=== PATIENT | female | born 1950 | race Caucasian/White ===

== ENCOUNTER 2017-08-25 21:17 | Inpatient (IN) | payer MEDICARE, MEDICAID ==
[~2017-08-25] VITALS: Ht 152.4 cm; Wt 56.7 kg
--- NOTE | 2017-08-25 21:17 | NUR ---
BB RA; RIGHT LOWER LEG S/P GLF PAIN 01/27 NONRADIATING. VSS NAD. WILL CONTINE TO MONITOR FOR ANY CHANGES DURING THE SHIFT. FRIEND AT BEDSIDE
--- NOTE | 2017-08-25 22:30 | NUR ---
MERCHANDISE EXAMINER AT BEDSIDE TO COLLECT BLOOD
--- NOTE | 2017-08-25 22:39 | NUR ---
SNUFF DRIER AT BEDSIDE
[2017-08-25 22:43] LABS: BASOPHILS # (AUTO) 0.1 /CMM (0.0-0.2); BASOPHILS % (AUTO) 1.2 % (0.0-2.0); HEMATOCRIT 40 % (33-45); HEMOGLOBIN 13.8 g/dL (11.5-14.8); LYMPHOCYTES # (AUTO) 2.4 /CMM (0.8-4.8); LYMPHOCYTES % (AUTO) 32.7 % (20.0-44.0); MEAN CORPUSCULAR HGB CONC 35 g/dl (31.0-36.0); MEAN CORPUSCULAR VOLUME 98 fL (82-100); MONOCYTES # (AUTO) 0.6 /CMM (0.1-1.30); MONOCYTES % (AUTO) 7.8 % (2.0-12.0); NEUTROPHILS # (AUTO) 4.2 /CMM (1.8-8.9); NEUTROPHILS % (AUTO) 57.3 % (43.0-81.0); PLATELET COUNT (AUTO) 361 /CMM (150-450); RDW COEFFICIENT OF VARIATION 13.2 (11.5-15.0); RED BLOOD CELL COUNT(AUTO) 4.05 MIL/uL (4.0-5.2); WHITE BLOOD COUNT (AUTO) 7.3 K/uL (4.3-11.0)
--- NOTE | 2017-08-25 22:45 | NUR ---
MINE ENVIRONMENTAL ENGINEER AT BEDSIDE
[2017-08-25 22:56] LABS: INR 0.97 (0.87-1.13)
[2017-08-25 23:01] LABS: ALANINE AMINOTRANSFERASE 35 U/L (12-78); ALBUMIN 3.9 g/dL (3.4-5.0); ALKALINE PHOSPHATASE 89 U/L (46-116); ASPARTATE AMINOTRANSFERASE 22 U/L (15-37); BILIRUBIN,DIRECT 0.1 mg/dL (0.0-0.2); BILIRUBIN,TOTAL 0.3 mg/dL (0.2-1.0); CALCIUM, SERUM 8.9 mg/dL (8.5-10.1); CARBON DIOXIDE 25 mmol/L (21-32); CHLORIDE 97 mmol/L (98-107); CREATININE 0.7 mg/dL (0.6-1.3); GLUCOSE 105 mg/dL (74-106); POTASSIUM 3.9 mmol/L (3.5-5.1); SODIUM SERUM 135 mmol/L (136-145); UREA NITROGEN, BLOOD 7 mg/dL (7-18)
[2017-08-25 23:03] LABS: TROPONIN I < 0.017 ng/mL (0.00-0.056)
--- NOTE | 2017-08-25 23:14 | NUR ---
FOR EMEGERENCY CALL [facility]
[2017-08-26] MEDS ORDERED: ZOLPIDEM TARTRATE 5 MG TABLET PO PRN
[2017-08-26] MEDS ORDERED: HYDROCODONE/APAP 5/325MG 1 EACH TABLET PO PRN
[2017-08-26] MEDS ORDERED: Z GUARD REMEDY 2 OZ OINT TP PRN
[2017-08-26] MEDS ORDERED: MAG HYDROX/AL HYDROX/SIMETH 30 ML UDC PO PRN
[2017-08-26] MEDS ORDERED: MAGNESIUM HYDROXIDE 30 ML UDC PO PRN
[2017-08-26] MEDS ORDERED: ACETAMINOPHEN 325 MG TABLET PO PRN
[2017-08-26] MEDS ORDERED: ONDANSETRON HCL/PF 4 MG/2 ML VIAL IVP PRN
[2017-08-26 00:04] LABS: APPEARANCE,URINE CLEAR (CLEAR); BILIRUBIN,URINE NEGATIVE (NEGATIVE); BLOOD, URINE NEGATIVE Ery/uL (NEGATIVE); COLOR,URINE YELLOW (YELLOW); KETONES,URINE NEGATIVE (NEGATIVE); LEUKOCYTE ESTERASE ,URINE NEGATIVE (NEGATIVE); NITRITE, URINE NEGATIVE (NEGATIVE); PH,URINE 5.5 (5.0-8.0); PROTEIN,URINE NEGATIVE (NEGATIVE); UGLUCOSE NEGATIVE (NEGATIVE); UROBILINOGEN,URINE 0.2 EU/dL (0.2)
--- NOTE | 2017-08-26 00:31 | NUR ---
BED 309
[2017-08-26 01:00] VITALS: BP 124/70
--- NOTE | 2017-08-26 01:00 | NUR ---
RN NOTES RECEIVED PT. FROM ER WITH DX. OF GROUND LEVEL FALL, A/OX3, SPLINT ON THE RIGHT ANKLE , ER DOCTOR APPLIED THE SPLINT, SR ON TELE MONITOR, ADMISSION INSTRUCTION WAS GIVE, CALL [facility] WITHIN REACH, SIDERAILSUPX2, CONTINUE TO MONITOR
--- NOTE | 2017-08-26 02:00 | NUR ---
RN NOTES PT WANTS TO REMOVED HER SPLINT ON HER RIGHT ANKLE, EXPLAINED THE IMPORTANCE OF THE SPLINT AND CHARGE NURSE ALSO TALKED TO THE PT. PT AGREED TO LEAVE IT ON UNTIL THE DOCTOR COMES IN THE MORNING
[2017-08-26] MEDS: IV NS 0.9% 1,000 ML IV PRN (02:03)
--- NOTE | 2017-08-26 07:14 | NUR ---
RN NOTES SLEEPING BUT AROUSABLE. PT DENIES PAIN, NO SOB, MORNING CARE RENDERED, CALL LIGHT WITHIN REACH, SIDERAILSUPX2, PT. NEEDS ATTENDED
[2017-08-26 07:15] LABS: CALCIUM, SERUM 8.6 mg/dL (8.5-10.1); CREATININE 0.7 mg/dL (0.6-1.3); MAGNESIUM 1.7 mg/dL (1.8-2.4); PHOSPHORUS 3.7 mg/dL (2.5-4.9); POTASSIUM 3.6 mmol/L (3.5-5.1)
--- NOTE | 2017-08-26 07:15 | NUR ---
RN OPENING NOTES RECEIVED PATIENT IN BED ALERT ORIENTED X4. NO ACUTE DISTRESS NOTED. SPLINT IN PLACE. IV ACCESS PATENT AND INTACT. SAFETY MEASURES IN PLACE. CALL LIGHT WITHIN REACH.
[2017-08-26 07:17] LABS: THYROID STIMULATING HORMONE 1.259 uIU/mL (0.358-3.74)
[2017-08-26 08:00] VITALS: BP_SYST 129; BP_SYST 149; BP_DIAS 73; BP_DIAS 79
[2017-08-26] MEDS: PANTOPRAZOLE 40 MG TABLET.DR PO SCH (08:22)
[2017-08-26 08:24] LABS: BASOPHILS % (AUTO) 0.7 % (0.0-2.0); HEMATOCRIT 38 % (33-45); HEMOGLOBIN 13.2 g/dL (11.5-14.8); MEAN CORPUSCULAR HGB CONC 35 g/dl (31.0-36.0); MEAN CORPUSCULAR VOLUME 98 fL (82-100); MONOCYTES # (AUTO) 0.7 /CMM (0.1-1.30); MONOCYTES % (AUTO) 14.6 % (2.0-12.0); NEUTROPHILS # (AUTO) 1.9 /CMM (1.8-8.9); NEUTROPHILS % (AUTO) 39.7 % (43.0-81.0); PLATELET COUNT (AUTO) 361 /CMM (150-450); RDW COEFFICIENT OF VARIATION 13.2 (11.5-15.0); RED BLOOD CELL COUNT(AUTO) 3.87 MIL/uL (4.0-5.2); WHITE BLOOD COUNT (AUTO) 4.8 K/uL (4.3-11.0)
--- NOTE | 2017-08-26 10:10 | NUR ---
MS RN NOTES SEEN AND EVALUATED BY DR DAVE SOTO STUDENT BROKERAGE MANAGER.
[2017-08-26] MEDS: Magnesium 1GM/D5W 100ML PREMIX 100 ML IV SCH ×2 (10:30→11:33)
[2017-08-26] MEDS: THIAMINE HCL 100 MG TABLET PO SCH (11:33)
[2017-08-26 16:48] VITALS: BP_SYST 100; BP_SYST 125; BP_DIAS 42; BP_DIAS 86
--- NOTE | 2017-08-26 18:00 | NUR ---
MS RN NOTES PATIENT IN BED ALERT ORIENTED X4. NO ACUTE DISTRESS NOTED. BREATHING UNLABORED. NO SOB NOTED. IV ACCESS PATENT AND INTACT, NO REDNESS OR SWELLING NOTED. DUE MEDICATIONS GIVEN, NO ASE NOTED. NEEDS ATTENDED AND ANTICIPATED. SAFETY MEASURES IN PLACE. CALL LIGHT WITHIN REACH. WILL CONTINUE TO MONITOR ACCORDINGLY. WILL ENDORSE TO NIGHT NURSE FOR CONTINUITY OF CARE.
--- NOTE | 2017-08-26 19:10 | NUR ---
RN OPENING NOTES PT AWAKE AND ALERT. FRIEND AT BEDSIDE. NO COMPLAINTS OF PAIN, SOB, OR DISTRESS AT THIS TIME. PT HAS LEFT AC #18 RUNNING NS @50ML/HR, INTACT AND PATENT. PT HAS A RIGHT LEG SPLINT. BEDSIDE COMMODE AVAILABLE FOR PT. SAFETY PRECAUTIONS IN PLACE. BED IN LOW, LOCKED POSITION, X2 SIDERAILS UP. CALL LIGHT WITHIN REACH. WILL CONTINUE TO MONITOR.
[2017-08-26 20:00] VITALS: BP 149/79
[2017-08-26] MEDS: ENOXAPARIN SODIUM 40 MG/0.4 ML DISP.SYRIN SQ SCH ×2 (21:35)
--- NOTE | 2017-08-26 22:30 | NUR ---
RN NOTES PT REQUESTED A NICOTINE PATCH. JONATHON MARTINEZ NP ORDERED NICODERM 21MG PATCH. WILL APPLY AND ENDORSE TO DAY SHIFT NURSE FOR CONTINUITY OF CARE.
[2017-08-26] MEDS: NICOTINE PATCH (21MG) 21 MG PATCH.TD24 TD SCH (22:40)
--- NOTE | 2017-08-26 22:41 | NUR ---
RN NOTES PT REQUESTED CARMELO VILLEDA. WILL ADMINISTER AND CONTINUE TO MONITOR.
--- NOTE | 2017-08-27 06:30 | NUR ---
RN NOTES PT COMPLAINED OF BACK PAIN. WILL ADMINISTER NORCO AND GIVE PT ICE PACK. WILL CONTINUE TO MONITOR.
--- NOTE | 2017-08-27 06:48 | NUR ---
RN CLOSING NOTES PT AWAKE AND ALERT. ALL PT NEEDS MET. PT HAS LEFT AC #18 RUNNING NS @50ML/HR, INTACT AND PATENT. PT HAS A RIGHT LEG SPLINT. BEDSIDE COMMODE AVAILABLE FOR PT. SAFETY PRECAUTIONS IN PLACE. BED IN LOW, LOCKED POSITION, X2 SIDERAILS UP. CALL LIGHT WITHIN REACH. WILL ENDORSE TO DAY SHIFT FOR CONTINUITY OF CARE.
--- NOTE | 2017-08-27 07:15 | NUR ---
RN OPENING NOTES RECEIVED PATIENT IN BED, ALERT ORIENTED X 4. NO ACUTE DISTRESS NOTED. BREATHING UNLABORED. NO SOB NOTED. IV ACCESS PATENT AND INTACT, NO REDNESS OR SWELLING NOTED. SAFETY MEASURES IN PLACE. CALL LIGHT WITHIN REACH. MADY CONTINUE TO MONITOR ACCORDINGLY.
[2017-08-27 07:27] LABS: CALCIUM, SERUM 8.3 mg/dL (8.5-10.1); CREATININE 0.6 mg/dL (0.6-1.3); MAGNESIUM 2.2 mg/dL (1.8-2.4); POTASSIUM 3.7 mmol/L (3.5-5.1)
[2017-08-27] MEDS: THIAMINE HCL 100 MG TABLET PO SCH (08:23)
[2017-08-27] MEDS: PANTOPRAZOLE 40 MG TABLET.DR PO SCH (08:23)
[2017-08-27] MEDS: NICOTINE PATCH (21MG) 21 MG PATCH.TD24 TD SCH (08:24)
[2017-08-27] MEDS: IV NS 0.9% 1,000 ML IV PRN (09:53)
--- NOTE | 2017-08-27 10:55 | NUR ---
MS RN NOTES SEEN AND EVALUATED BY DR ONOFRE WITH NEW ORDERS MADE. NOTED AND CARRIED OUT.
--- NOTE | 2017-08-27 13:00 | NUR ---
MS RN NOTES SEEN AND EVALUATED BY PATRICIA PARTIDA WITH NEW ORDERS MADE. NOTED AND CARRIED OUT
--- NOTE | 2017-08-27 17:00 | NUR ---
MS GAR NOTES PATIENT VOIDED, NO URINARY RETENTION NOTED. Addendum: 08/27/17 at 1947 by MIRIAM ROSS RN CHARTED ON WRONG CHART
--- NOTE | 2017-08-27 19:15 | NUR ---
MS RN NOTES PATIENT DISCHARGED WITH STABLE VITAL SIGNS. NO ACUTE DISTRESS NOTED. BREATHING UNLABORED. DISCHARGE INSTRUCTIONS GIVEN TO THE PATIENT, INCLUDING FOLLOW UP APPOINTMENT. IV ACCESS REMOVED, NO BLEEDING OR SWELLING NOTED. ALL BELONGINGS ACCOUNTED FOR. ASSISTED TO THE LOBBY TO A PRIVATE CAR PICKED UP BY FRIEND.
== END 2017-08-27 19:25 | disposition home or self-care (01) | DRG 563 ==
LOC: ER 21:19 → TELE 08-26 00:24 → MED 08-26 09:10
PROVIDERS: ADMIT Registered Nurse; ATTEND Registered Nurse
PROC: 2W3QX1Z Immobilization of Right Lower Leg using Splint (ICD-10-PCS; principal; 2017-08-26)
DX: S82.891A Other fracture of right lower leg, initial encounter for closed fracture (principal); E83.42 Hypomagnesemia; E87.1 Hypo-osmolality and hyponatremia; F10.239 Alcohol dependence with withdrawal, unspecified; W18.30XA Fall on same level, unspecified, initial encounter; E86.0 Dehydration; F10.229 Alcohol dependence with intoxication, unspecified; Y90.7 Blood alcohol level of 200-239 mg/100 ml; Y93.9 Activity, unspecified; E56.9 Vitamin deficiency, unspecified; T51.0X1A Toxic effect of ethanol, accidental (unintentional), initial encounter; Z91.81 History of falling; Y92.009 Unspecified place in unspecified non-institutional (private) residence as the place of occurrence of the external cause
CPT/HCPCS: 36415; 70450-TC; 73564-TC; 73610-TC; 80048-TC; 80061-TC; 80076-TC; 80305; 81000-TC; 82746; 83735-TC; 84100-TC; 84425; 84443-TC; 84484-TC; 85025-TC; 85730-TC; 87081-TC; 93307-TC; 93971-TC; 97116-TC; 97530-TC; A4606; G0480; J1650; J3475; J7030; Z7610